=== PATIENT | female | born 1980 | race Caucasian/White ===

== ENCOUNTER 2023-07-24 12:10 | Outpatient (CLI) | payer BC, MEDICARE, SELFPAY ==
--- NOTE | ~2023-07-24 | XR_ITS ---
XR chest 2V DATE: 07/24/2023 12:41 INDICATION: Cough for 2 months. Weight loss. TECHNIQUE: 2 views COMPARISON: None FINDINGS: Bilateral hyperinflation, increased retrosternal airspace, relative flattening of the diaph ragm, suggesting COPD. No pulmonary infiltrate or consolidation, pleural effusion or pulmonary vascul ar congestion or pneumothorax. Normal heart size. No hilar or mediastinal enlargement. Left chest. Electrode extending upward of left cervical area. Minimal thoracic and lumbar scoliosis. IMPRESSION: Bilateral hyperinflation suggesting COPD Reviewed, dictated and finalized at location B. ENT UNION CONSULTANT
[2023-07-24 12:33] LABS: Basophils Absolute Auto 0.04 K/mm3 (0.00-0.10); Basophils Percent Auto 0.4 % (0.0-1.0); Eosinophils Absolute Auto 0.09 K/mm3 (0.02-0.50); Eosinophils Percent Auto 0.8 % (1.0-6.0); Hematocrit 40.9 % (35.0-49.0); Hemoglobin 13.8 g/dL (12.0-15.0); Immature Granulocyte Absolute 0.05 K/mm3 (0.00-0.00); Immature Granulocyte Percent A 0.5 % (0.0-0.0); Lymphocytes Percent Auto 21.8 % (18.0-42.0); Mean Corpuscular HGB Conc 33.7 g/dL (32.0-36.0); Mean Corpuscular Hemoglobin 32.5 pg (27.0-31.0); Mean Corpuscular Volume 96.5 fL (78.0-102.0); Mean Platelet Volume 9.9 fl (9.2-11.8); Monocytes Absolute Auto 0.64 K/mm3 (0.10-0.90); Monocytes Percent Auto 5.8 % (2.0-11.0); Neutrophils Absolute Auto 7.8 K/mm3 (1.7-7.2); Neutrophils Percent Auto 70.7 % (50.0-70.0); Platelet Count Result 234 K/mm3 (150-420); Red Blood Count 4.24 M/mm3 (4.20-5.40); Red Cell Distribution Width 13.1 % (11.6-14.4)
[2023-07-24 12:58] LABS: Appearance Urine Clear (Clear); Bilirubin Urine Negative (Negative); Blood Urine Negative (Negative); Color Urine Yellow (Yellow); Glucose Urine UA Negative (Negative); Ketones Urine Negative (Negative); Leukocyte Esterase Ur Negative (Negative); Nitrate Urine Negative (Negative); Protein Urine Negative (Negative); Specific Grav Ur 1.015 (1.010-1.020); Urobilinogen Urine 0.2 mg/dL (0.2-1.0)
[2023-07-24 12:59] LABS: Add Urine Microscopic? NO
[2023-07-24 13:59] LABS: Alanine Aminotransferase 31 U/L (14-59); Albumin Level 4.7 g/dL (3.4-5.0); Alkaline Phosphatase 88 U/L (46-116); Anion Gap 8 mmol/L (8-16); Aspartate Amino Transferase 17 U/L (15-37); Bilirubin,Total 0.4 mg/dL (0.00-1.00); Blood Urea Nitrogen 15 mg/dL (7-18); Calcium 9.6 mg/dL (8.5-10.1); Carbon Dioxide 30 mmol/L (21-32); Chloride 104 mmol/L (98-108); Cholesterol 161 mg/dL (0-200); Estimated Glomerular Filt Rate > 60; Free T3 2.77 pg/mL (2.18-3.98); Free T4 Free Thyroxine 0.94 ng/dL (0.76-1.46); Glucose 92 mg/dL (70-99); HDL Direct 59 mg/dL (40-60); LDL Cholesterol Calculated 91 mg/dL (<130); Osmolality Calculated 294 mOsm/kg (285-295); Potassium 4.2 mmol/L (3.5-5.1); Sodium 142 mmol/L (136-145); Thyroid Stimulating Hormone 1.17 uIU/mL (0.36-3.74); Total Protein 7.1 g/dL (6.4-8.2); Triglycerides 53 mg/dL (0-150)
[2023-07-24 14:00] LABS: CRP < 0.5 mg/dL (0.0-0.9)
[2023-07-26 09:33] LABS: Levetiracetam Keppra 48.1 mcg/mL (6.0-46.0)
== END 2023-07-24 12:11 | disposition home or self-care (01) ==
LOC: CHSLAB 12:16
PROVIDERS: PCP Internal Medicine; Visit Provider Internal Medicine
DX: R05.9 Cough, unspecified (principal); R63.4 Abnormal weight loss; G40.909 Epilepsy, unspecified, not intractable, without status epilepticus; R91.8 Other nonspecific abnormal finding of lung field; Z13.6 Encounter for screening for cardiovascular disorders
CPT/HCPCS: 36415; 71046; 80053; 80061; 80177; 81003; 84439; 84443; 84481; 85025; 86140

== ENCOUNTER 2023-08-30 10:55 | Outpatient (CLI) | payer BC, MEDICARE, SELFPAY | END 2023-08-30 10:56 | disposition home or self-care (01) | LOC: CHSCARD 10:57 | PROVIDERS: PCP Internal Medicine; Visit Provider Internal Medicine | DX: J44.9 Chronic obstructive pulmonary disease, unspecified (principal) | CPT/HCPCS: 94060; 94726; 94729 ==

== ENCOUNTER 2024-12-28 12:08 | Outpatient (CLI) | payer MEDICARE, SELFPAY ==
[2024-12-28 13:14] LABS: Pregnancy On Board Control Positive; Urine Pregnancy Test Negative
[2024-12-28 13:16] LABS: Basophils Absolute Auto 0.03 K/mm3 (0.00-0.10); Basophils Percent Auto 0.3 % (0.0-1.0); Eosinophils Absolute Auto 0.18 K/mm3 (0.02-0.50); Eosinophils Percent Auto 2.1 % (1.0-6.0); Hematocrit 37.2 % (35.0-49.0); Hemoglobin 12.2 g/dL (12.0-15.0); Immature Granulocyte Absolute 0.03 K/mm3 (0.00-0.00); Immature Granulocyte Percent A 0.3 % (0.0-0.0); Lymphocytes Absolute Auto 2.35 K/mm3 (1.10-4.50); Lymphocytes Percent Auto 27.3 % (18.0-42.0); Mean Corpuscular HGB Conc 32.8 g/dL (32-36); Mean Corpuscular Hemoglobin 30.1 pg (27.0-31.0); Mean Corpuscular Volume 91.9 fL (78.0-102.0); Mean Platelet Volume 9.8 fl (9.2-11.8); Monocytes Absolute Auto 0.43 K/mm3 (0.10-0.90); Neutrophils Absolute Auto 5.59 K/mm3 (1.70-7.20); Platelet Count Result 256 K/mm3 (150-420); Red Blood Count 4.05 M/mm3 (4.20-5.40); Red Cell Distribution Width 12.4 % (11.6-14.4); White Blood Count 8.6 K/mm3 (4.8-10.8)
--- OUTSIDE RECORDS SUMMARY | 2024-12-28 13:26 | XMS_ITS | Clinical Summary ---
Author Organization [address] Address [facility] [place] [address] Care Team Providers Care Campaign Worker Name Role Phone Juan Antonio Keith MD Primary Care Provider [phone] Allergies Active Allergy Reactions Criticality Noted Date Comments Ceftriaxone Rash Medium 08/29/2023 Medications FLUoxetine 10 mg capsule Take 1 tablet/capsu le (10 mg total) by mouth nightly 4 Active montelukast (SINGULAIR) 10 mg tablet Take 1 tablet (10 mg total) by mouth daily as needed 4 Active famotidine (PEPCID) 20 mg tablet Take 1 tablet (20 mg total) by mouth 2 (two) times a day Active chlorhexidine (HIBICLENS) 4 % external liquidIndications :Skin Disinfection Use to wash for six days prior to surgery. Avoid face and genitals. 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 Dizziness 01/13/2021 Fatigue 11/29/2020 Cobalamin deficiency 11/29/2020 Mixed anxiety and depressive disorder 11/15/2020 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 Elevated liver enzymes 11/15/2020 Resolved Problems Problem Noted Date Diagnosed Date Resolved Date Seizure 11/20/2023 01/02/2024 Vitamin D deficiency 11/29/2020 024 Encounters Date Type Department Care Team Description 2024 2:00 PM CDT - 2024 3:30 PM CDT Surgery [facility] Operating Room [address] [place] [address] [phone] Dawson Quigley MD Replacement of Left Vagal Nerve Stimulator Battery 2024 1:53 PM CDT Anesthesia Event [facility] Operating Room [address] [place] [phone] Fuentes Cuevas MD Gravlin, Leslie Anne, CRNA 2024 12:18 PM CDT - 2024 3:37 PM CDT Hospital Encounter [facility] Operating Room [address] [place] [phone] Dawson Quigley MD Discharge Disposition: Discharge to home or self care 10/30/2024 8:30 AM CDT Telemedicine [facility] Pre Anesthesia Testing [address] [place] [phone] 10/29/2024 11:59 PM CDT Anesthesia Event [facility] Operating Room [address] [place] [phone] Ivory Goodwin PA from Last 3 Months Immunizations Immunization Administration Dates Next Due Tdap 10/21/2015 Surgical History Surgery Date Site/Laterality Comments IMPLANTATION VAGAL NERVE STIMULATOR 07/22/2004 - 005 ORBITAL FRACTURE SURGERY Left Medical History Medical History Date Comments Mixed anxiety and depressive disorder 11/15/2020 Generalized headache 08/29/2023 Seizures (HCC) Family History Medical History Relation Name Comments Epilepsy Cousin Epilepsy Mother Epilepsy Nephew Relation Name Status Comments Cousin Alive Mother Nephew Alive Social History Tobacco Use Types Packs/Day Years Used Date Smoking Tobacco: Former Cigarettes 1 31.2 S tarted: 10/20/1993 Smokeless Tobacco: Never Tobacco Cessation:Counseling Given: Not Answered AUDIT-C Answer Date Recorded Q1: How often do you have a drink containing alc ohol? Monthly or less 10/30/2024 Q2: How many drinks containi ng alcohol do you have on a typical day when you are drinking? 1 or 2 10/30/2024 Frequency of Binge Drinking Not on file 10/20 Personal Safety Answer Date Recorded Have you ever been in or are you currently in a harmful physical or emotional relationship or is someone making you feel afraid or unsafe? 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 Gender Identity Female 10/14/2023 1:28 PM CDT Sexual Orientation Straight 10/14/2023 1: 28 PM CDT Occupation Industry Job Start Date Job End Date Disabled Not on file Not on file Not on file Obstetrics History Last Filed Vital Signs Vital Sign Reading Time Taken Comments Blood Pressure 114/57 2024 3:15 PM CDT Pulse 66 2024 3:15 PM CDT Temperature 36.2 C (97.1 F) 2024 2:45 PM CDT Respiratory Rate 13 2024 3:15 PM CDT Oxygen Saturation 96% 2024 3:15 PM CDT Inhaled Oxygen Concentration - - Weight 57.2 kg (126 lb 1.7 oz) 2024 12:38 PM CDT Height 160 cm (5' 3) 2024 12:38 PM CDT Body Mass Index 22.34 2024 12:38 PM CDT Plan of Treatment Health Maintenance Due Date Last Done Comments Breast Cancer Screening-Mammogram 1979 Cervical Cancer Screening 1979 Colon Cancer Screening-Colonoscopy 1979 Depression Screening 1979 Hepatitis C Screening 1979 Varicella Vaccines (1 of 2 - 13+ 2-dose series) 11/03/1992 Hepatitis B Screening 11/03/1997 Regular Well Visit/Exam 18-64 11/03/1997 Influenza Vaccine (Season Ended) 2025 DTaP/Tdap/Td Vaccine (2 - Td or Tdap) 10/20/2025 10/21/2015 HPV Vaccines Aged Out No longer eligi ble based on patient's age to complete this topic Pneumococcal vaccine <65 Aged Out No longer eligible based on patient's age to complete this topic Medical Devices Implanted Type Area Computer Aided Design Drafter Device Identifier Shelf Expiration Date Model / Serial / Lot Vagus Nerve Stimulator-04/2015 Implanted:04/2015 by Unknown, Notinfile (Quantity not on file) Vagus Nerve Stimulator Head LivaNova M103 / [id number] / Mesh Eye Socket Left: Eye Livanova Sentiva Generator Model Sgl Pin Receptacle Volume 8cc 1000 - [id number] - [id number] Implanted:Qty : 1 on 2024 by Dawson Quigley MD at [facility] Left: Chest LivaNova [id number] 09/01/2026 1000 / [id number] / Procedures Procedure Name Priority Date/Time Associated Diagnosis Comments REPLACEMENT STIMULATOR BATTERY - VAGAL NERVE 2024 1:53 PM CDT Focal epilepsy (HCC) POCT HCG, URINE Routine 2024 12:58 PM CDT from Last 3 Months Results * POCT hCG, urine (2024 12:58 PM CDT) HCG, ur, POC Negative Negative Lot Number [id number] QC Backgroud Clear Acceptable QC Control Line Acceptable Urine 2024 12:5 8 PM CDT Ivory BARKER POINT OF CARE TEST OR DERABLES Final Result from Last 3 Months Insurance [facility] MEDICARE ADVANTAGE BLUE ACCESS OOS [facility] MEDICARE ADVANTAGE BLUE ACCESS OOS Advance Directives For more information, please contact: [phone] * Full Code (Latest Code Status on File) Date Activated Date Inactivated Comments 11/20/2023 8:41 AM 11/23/2023 5:02 PM Care Teams Campaign Worker Relationship Specialty Start Date End Date Juan Antonio Keith MD PCP - General Internal Medicine 07/29/23
--- OUTSIDE RECORDS SUMMARY | 2024-12-28 13:26 | XMS_ITS | Referral Summary ---
Author Organization [place] [id number] [facility] Address [address] [place] [address] Care Team Providers Care Dough Mixing Machine Operator Name Role Phone Juan Antonio Keith MD Primary Care Provider Encounters Date Type Department Care Team Description 2024 2:00 PM CDT - 2024 3:30 PM CDT Surgery [facility] Operating Room [address] [place] [phone] Dawson Quigley MD Replacement of Left Vagal Nerve Stimulator Battery 2024 1:53 PM CDT Anesthesia Event [facility] Operating Room [address] [place] [phone] Fuentes Cuevas MD Gravlin, Leslie Anne, CRNA 2024 12:18 PM CDT - 2024 3:37 PM CDT Hospital Encounter [facility] Operating Room [address] [place] [phone] Dawson Quigley MD Discharge Disposition: Discharge to home or self care 10/29/2024 11:59 PM CDT Anesthesia Event [facility] Operating Room [address] [place] [phone] Ivory Goodwin PA 10/30/2024 8:30 AM CDT Telemedicine [facility] Pre Anesthesia Testing [address] [place] [phone] from Last 3 Months Allergies Active Allergy Reactions Criticality Noted Date [...] 11/20/2023 01/02/2024 Vitamin D deficiency 11/29/2020 024 Immunizations Immunization Administration Dates Next Due Tdap 10/21/2015 Social History Tobacco Use Types Packs/Day Years [...] on file 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 Gender Identity Female 10/14/2023 1:28 PM CDT Sexual Orientation Straight 10/14/2023 1: 28 PM CDT Occupation Industry Job Start Date Job End Date Disabled Not on file Not on file Not on file Last Filed Vital Signs Vital Sign Reading [...] 2024 12:38 PM CDT Plan of Treatment Not on file Medical Devices Implanted Type Area Fabric Worker Foreman Device Identifier Shelf Expiration Date Model / Serial / Lot Vagus Nerve Stimulator-04/2015 Implanted:04/2015 by Unknown, Notinfile (Quantity not on file) Vagus Nerve Stimulator Head LivaNova M103 / [id number] / Mesh Eye Socket Left: Eye Livanova Sentiva Generator Model Sgl Pin Receptacle Volume 8cc 1000 - [id number] - [id number] Implanted:Qty : 1 on 2024 by Dawson Quigley MD at [facility] Left: Chest LivaNova [id number] 09/01/2026 1000 / [id number] / Procedures Procedure Name Priority Date/Time Associated [...] Final Result from Last 3 Months Insurance [facility] MEDICARE ADVANTAGE [facility] Address: [address] [address] [place] [address] Namely OOS [facility] MEDICARE ADVANTAGE [facility] Address: [address] [address] [place] [address] Namely OOS Advance Directives For more information, please contact: [phone] * Full Code (Latest Code Status on File) Date Activated Date Inactivated Comments 11/20/2023 8:41 AM 11/23/2023 5:02 PM Care Teams Dough Mixing Machine Operator Relationship Specialty Start Date End Date Juan Antonio Keith MD PCP - General Internal Medicine 07/29/23
[2024-12-28 13:27] LABS: Alanine Aminotransferase 86 U/L (6-35); Albumin Level 4.2 g/dL (3.5-5.1); Alkaline Phosphatase 129 U/L (38-126); Anion Gap 3 mmol/L (4-12); Aspartate Amino Transferase 59 U/L (14-36); Bilirubin,Total 0.4 mg/dL (0.2-1.3); Blood Urea Nitrogen 10 mg/dL (7-17); Calcium 9.2 mg/dL (8.4-10.2); Carbon Dioxide 29 mmol/L (22-30); Chloride 105 mmol/L (98-107); Estimated Glomerular Filt Rate > 60; Glucose 83 mg/dL (65-110); Osmolality Calculated 282 mOsm/kg (285-295); Potassium 3.9 mmol/L (3.4-5.0); Sodium 137 mmol/L (137-145); Total Protein 6.4 g/dL (6.3-8.2)
[2024-12-31 15:13] LABS: H pylori, Urea Breath NOT DETECTED (NOT DETECTED)
== END 2024-12-28 12:09 | disposition home or self-care (01) ==
LOC: CHSLAB 12:10
PROVIDERS: PCP Internal Medicine; Visit Provider Nurse Practitioner Family
DX: K21.00 Gastro-esophageal reflux disease with esophagitis, without bleeding (principal); R11.11 Vomiting without nausea; R19.7 Diarrhea, unspecified
CPT/HCPCS: 36415; 80053; 81025; 83013; 85025

== ENCOUNTER 2024-12-31 13:11 | Outpatient (CLI) | payer MEDICARE, SELFPAY ==
[2024-12-31 13:24] LABS: Occult Blood Negative (Negative)
--- OUTSIDE RECORDS SUMMARY | 2024-12-31 13:46 | XMS_ITS | Referral Summary ---
Author Organization [place] [id number] [facility] Address [address] [place] [address] Care Team Providers Care Systems Protection Technician Name Role Phone Juan Antonio Keith MD Primary Care Provider [phone] Encounters Date Type Department Care Team Description 2024 2:00 PM CDT - 2024 3:30 PM CDT Surgery [facility] Operating Room [address] [place] [phone] Dawson Quigley MD Replacement of Left Vagal Nerve Stimulator Battery 2024 1:53 PM CDT Anesthesia Event [facility] Operating Room [address] [place] [phone] Fuentes Cuevas MD Gravlin, Leslie Anne, CRNA 2024 12:18 PM CDT - 2024 3:37 PM CDT Hospital Encounter [facility] Operating Room [address] [place] [phone] Dawson Quigley MD Discharge Disposition: Discharge to home or self care 10/29/2024 11:59 PM CDT Anesthesia Event [facility] Operating Room [address] [place] [phone] Ivory Goodwin PA 10/30/2024 8:30 AM CDT Telemedicine [facility] Pre Anesthesia Testing [address] [place] [address] from Last 3 Months Allergies [...] on file 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 Gender Identity Female 10/14/2023 1:28 PM CDT [...] on file Medical Devices Implanted Type Area Guest Experience Specialist Device Identifier Shelf Expiration Date Model / Serial / Lot Vagus Nerve Stimulator-04/2015 Implanted:04/2015 by Unknown, Notinfile (Quantity not on file) Vagus Nerve Stimulator Head LivaNova M103 / [id number] / Mesh Eye Socket Left: Eye Livanova Sentiva Generator Model Sgl Pin Receptacle Volume 8cc 1000 - [id number] - [id number] Implanted:Qty : 1 on 2024 by Dawson Quigley MD at [facility] Left: Chest LivaNova [id number] 09/01/2026 1000 / [id number] / Procedures Procedure Name Priority Date/Time Associated [...] Final Result from Last 3 Months Insurance [facility] MEDICARE ADVANTAGE Link[employer]ycle OOS [facility] MEDICARE ADVANTAGE [employer] OOS Advance Directives For more information, please contact: [phone] * Full Code (Latest Code Status on File) Date Activated Date Inactivated Comments 11/20/2023 8:41 AM 11/23/2023 5:02 PM Care Teams Systems Protection Technician Relationship Specialty Start Date End Date Juan Antonio Keith MD PCP - General Internal Medicine 07/29/23
--- OUTSIDE RECORDS SUMMARY | 2024-12-31 13:46 | XMS_ITS | Clinical Summary ---
Author Organization [address] Address [facility] [place] [address] Care Team Providers Care Sack Cleaning Hand Name Role Phone Juan Antonio Keith MD Primary Care Provider [phone] Allergies Active Allergy Reactions Criticality Noted Date [...] CDT - 2024 3:30 PM CDT Surgery [facility] Operating Room [address] [place] [phone] Dawson Quigley MD Replacement of Left Vagal Nerve Stimulator Battery 2024 1:53 PM CDT Anesthesia Event [facility] Operating Room [address] [place] [phone] Fuentes Cuevas MD Gravlin, Leslie Anne, CRNA 2024 12:18 PM CDT - 2024 3:37 PM CDT Hospital Encounter [facility] Operating Room [address] [place] [phone] Dawson Quigley MD Discharge Disposition: Discharge to home or self care 10/30/2024 8:30 AM CDT Telemedicine [facility] Pre Anesthesia Testing [address] [place] [phone] 10/29/2024 11:59 PM CDT Anesthesia Event [facility] Operating Room [address] [place] [phone] Ivory Goodwin PA from Last 3 Months [...] on file 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 Gender Identity Female 10/14/2023 1:28 PM CDT [...] this topic Medical Devices Implanted Type Area [employer] Principal Device Identifier Shelf Expiration Date Model / Serial / Lot Vagus Nerve Stimulator-04/2015 Implanted:04/2015 by Unknown, Notinfile (Quantity not on file) Vagus Nerve Stimulator Head LivaNova M103 / [id number] / Mesh Eye Socket Left: Eye Livanova Sentiva Generator Model Sgl Pin Receptacle Volume 8cc 1000 - [id number] - [id number] Implanted:Qty : 1 on 2024 by Dawson Quigley MD at [facility] Left: Chest LivaNova [id number] 09/01/2026 1000 / [id number] / Procedures Procedure Name Priority Date/Time Associated [...] Final Result from Last 3 Months Insurance [facility] MEDICARE ADVANTAGE [facility] Address: [address] [address] [place] [address] BLUE ACCESS OOS [facility] MEDICARE ADVANTAGE [facility] Address: [address] [address] [place] [address] BLUE ACCESS OOS Advance Directives For more information, please contact: [phone] * Full Code (Latest Code Status on File) Date Activated Date Inactivated Comments 11/20/2023 8:41 AM 11/23/2023 5:02 PM Care Teams Sack Cleaning Hand Relationship Specialty Start Date End Date Juan Antonio Keith MD PCP - General Internal Medicine 07/29/23
[2024-12-31 14:09] LABS: Toxigenic C. Diff NEGATIVE (NEGATIVE)
== END 2024-12-31 13:12 | disposition home or self-care (01) ==
LOC: CHSIMG 13:13
PROVIDERS: PCP Internal Medicine; Visit Provider Nurse Practitioner Family
DX: K21.00 Gastro-esophageal reflux disease with esophagitis, without bleeding (principal); R11.11 Vomiting without nausea; R19.7 Diarrhea, unspecified
CPT/HCPCS: 82272; 87045; 87427; 87449; 87493

== ENCOUNTER 2025-01-11 14:06 | Outpatient (CLI) | payer BC, MEDICARE, SELFPAY ==
--- NOTE | ~2025-01-11 | US_ITS ---
EXAM: Focused ultrasound examination of the soft tissues of the right axilla HISTORY: M79.89 - Other specified soft tissue disorders . Family history of breast cancer, diagnosed in the patients maternal aunt. TECHNIQUE: Sonographic evaluation of the soft tissues of the right axilla were performed assessing gr ayscale appearance and color Doppler flow. COMPARISON: None. FINDINGS: Sonographic evaluation of the soft tissues of the right axilla demonstrate benign fibrofatty and fibr omuscular elements without a cystic or solid lesion of concern. IMPRESSION: No sonographic abnormality is appreciated on focused ultrasound examination of the right axilla. Reviewed, dictated and finalized at location A.
--- NOTE | ~2025-01-11 | MM_ITS ---
EXAMINATION: MM screening yvrose BI w prashanth HISTORY: Screening mammogram TECHNIQUE: Craniocaudal and mediolateral oblique 3-D tomosynthesis images were obtained and synthetic 2-D images were generated. CAD analysis was submitted and interpreted. COMPARISON: No prior mammogram is available for comparison at this institution. BREAST PARENCHYMAL COMPOSITION:Dense: The breasts are extremely dense, which lowers the sensitivity o f mammography. FINDINGS: No suspicious mass, calcification, or architectural distortion are identified in either jorge ast to suggest malignancy. There has been no suspicious interval change. IMPRESSION: No mammographic evidence of malignancy. Recommend routine screening mammography in one year. BI-RADS Category 1: Negative Reviewed, dictated and finalized at location .
== END 2025-01-11 14:07 | disposition home or self-care (01) ==
LOC: CHSIMG 14:06
PROVIDERS: PCP Internal Medicine; Visit Provider Nurse Practitioner Obstetrics & Gynecology
DX: Z12.31 Encounter for screening mammogram for malignant neoplasm of breast (principal); M79.89 Other specified soft tissue disorders
CPT/HCPCS: 76882; 77063; 77067

== ENCOUNTER 2025-05-06 10:14 | Outpatient (CLI) | payer BC, MEDICARE, SELFPAY ==
--- OUTSIDE RECORDS SUMMARY | 2025-05-06 11:26 | XMS_ITS | Clinical Summary ---
Author Organization [place] [id number] [facility] Address [address] [place] [address] Care Team Providers Care Field Examiner Name Role Phone Juan Antonio Keith MD Primary Care Provider [phone] Allergies Active Allergy Reactions Criticality Noted Date Comments Ceftriaxone Rash Medium 08/29/2023 Medications FLUoxetine 10 mg capsule Take 1 tablet/capsule (10 mg total) by mouth nightly 4 Active montelukast (SINGULAIR) 10 mg tablet Take 1 tablet (10 mg total) by mouth daily as needed 4 Active famotidine (PEPCID) 20 mg tablet Take 1 tablet (20 mg total) by mouth 2 (two) times a day Active chlorhexidine (HIBICLENS) 4 % external liquidIndication s:Skin Disinfection Use to wash for six days prior to surgery. Avoid face and genitals. 120 mL 1 5 Active Additional Information Patient not taking.Reported on 01/13/2025 HYDROcodone-acet aminophen (NORCO) 7.5-325 mg per tabletIndication s:Pain Take 1 tablet by mouth every 4 (four) hours as needed for pain 30 tablet 5 Active levETIRAcetam (KEPPRA) 500 mg tabletIndication s:Focal epilepsy (HCC) Take 3.5 tablets (1,750 mg total) by mouth 2 (two) times a day 630 tablet 3 5 01/14/20 26 Active lamoTRIgine (LaMICtal) 25 mg tabletIndication s:Focal epilepsy (HCC) Take 1 tablet (25 mg total) by mouth 2 (two) times a day 180 tablet 2 12/12/19 26 Active Active Problems Problem Noted Date Diagnosed [...] Used Date Smoking Tobacco: Former Cigarettes 1 31.5 S tarted: 10/20/1993 Smokeless Tobacco: Never Tobacco [...] on file 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 Gender Identity Female 10/14/2023 1:28 PM CDT Sexual Orientation Straight 10/14/2023 1: 28 PM CDT Occupation Industry Job Start Date Job End Date Disabled Not on file Not on file Not on file Obstetrics History Last Filed Vital Signs Vital Sign Reading Time Taken Comments Blood Pressure 108/74 01/13/2025 2:26 PM CDT Pulse 75 01/13/2025 2:26 PM CDT Temperature 36.9 C (98.4 F) 01/13/2025 2:26 PM CDT Respiratory Rate 13 2024 3:15 PM CDT Oxygen Saturation 99% 01/13/2025 2:26 PM CDT Inhaled Oxygen Concentration - - Weight 58.3 kg (128 lb 8 oz) 01/13/2025 2:26 PM CDT Height 160 cm (5' 3) 01/13/2025 2:26 PM CDT Body Mass Index 22.76 01/13/2025 2:26 PM CDT Plan of Treatment Health Maintenance Due Date Last Done Comments Breast Cancer Screening-Mammogram 1979 Cervical Cancer Screening 1979 Colon Cancer Screening-Colonoscopy 1979 Depression Screening 1979 Hepatitis C Screening 1979 Varicella Vaccines (1 of 2 - 13+ 2-dose series) 1992 Hepatitis B Screening 11/03/1997 Regular Well Visit/Exam 18-64 11/03/1997 Pneumococcal vaccine <65 (1 of 2 - PCV) 11/03/1998 HPV Vaccines (1 - 3-dose SCDM series) 11/03/2006 Influenza Vaccine (#1) 2025 DTaP/Tdap/Td Vaccine (2 - Td or Tdap) 10/20/202507/2015 Medical Devices Implanted Type Area Calender Operator Helper Device Identifier Shelf Expiration Date Model / Serial / Lot Vagus Nerve Stimulator-04/2015 Implanted:04/2015 by Unknown, Notinfile (Quantity not on file) Vagus Nerve Stimulator Head LivaNova M103 / [id number] / Mesh Eye Socket Left: Eye Livanova Sentiva Generator Model Sgl Pin Receptacle Volume 8cc 1000 - [id number] - [id number] Implanted:Qty : 1 on 2024 by Dawson Quigley MD at [facility] Left: Chest LivaNova [id number] 09/01/2026 1000 / [id number] / Insurance [facility] MEDICARE ADVANTAGE BLUE ACCESS OOS [facility] MEDICARE ADVANTAGE BLUE ACCESS OOS Advance Directives For more information, please contact: [phone] * Full Code (Latest Code Status on File) Date Activated Date Inactivated Comments 11/20/2023 8:41 AM 11/23/2023 5:02 PM Care Teams Field Examiner Relationship Specialty Start Date End Date Juan Antonio Keith MD PCP - General Internal Medicine 07/29/23
[2025-05-06 11:31] LABS: Thyroid Stimulating Hormone 0.583 uIU/mL (0.465-4.680)
[2025-05-07 07:10] LABS: LH 20.5 mIU/mL (.)
[2025-05-07 11:09] LABS: FSH 18.2 mIU/mL (.)
[2025-05-11 16:08] LABS: Estradiol, Sensitive 47.9 pg/mL (.)
== END 2025-05-06 10:15 | disposition home or self-care (01) ==
LOC: ANHLAB 10:16
PROVIDERS: PCP Internal Medicine; Visit Provider Student in an Organized Health Care Education/Training Program
DX: N95.1 Menopausal and female climacteric states (principal); N92.6 Irregular menstruation, unspecified
CPT/HCPCS: 36415; 82670; 83001; 83002; 84443